=== PATIENT | male | born 2005 | race Caucasian/White ===

== ENCOUNTER 2025-01-14 20:30 | Emergency (ER) | payer BC ==
[~2025-01-14] VITALS: Ht 193 cm; Wt 97.7 kg
--- NOTE | 2025-01-14 20:38 | ELECTROCARDIOGRAPH REPORT ---
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
--- NOTE | 2025-01-14 20:53 | RADIOLOGY REPORT ---
CHEST RADIOGRAPH Indication: CP Technique: Single frontal view of the chest was obtained Comparison: None FINDINGS: Lines and Tubes: None Lungs: No focal consolidation. Pleura: No effusion. No pneumothorax. Cardiomediastinal contours: Unremarkable Bones: No acute osseous abnormality. IMPRESSION: No acute cardiopulmonary disease.
[2025-01-14 20:55] LABS: MEAN PLATELET VOLUME 8.4 FL (7.4-10.4); RED CELL DISTRIBUTION WIDTH 12.6 % (11.5-14.5)
[2025-01-14 21:19] LABS: CREATININE 1.38 MG/DL (0.60-1.10); PRO BRAIN NATRIURETIC PEPTIDE 76 PG/ML (0-125); TOTAL CARBON DIOXIDE 31.1 MMOL/L (24-32); eCRCL 105 ML/MIN; eGFR 66 ML/MIN
--- NOTE | 2025-01-14 23:04 | Physician Documentation ---
History of Present Illness ~ Chief Complaint: Chest Pain Stated Complaint: CHEST PAIN X1 DAY Time Seen by MD: 22:57 HPI This is a 19-year-old male who presents with left-sided sharp and nonradiating chest pain worse with deep breathing, patient reports no shortness of breath if if leaned, nausea, vomiting or diaphoresis. Patient reports no the past cardiac conditions. Patient reports no other acute symptoms or concerns. Medication Reconciliation Allergies: Coded Allergies: No Known Allergies (Unverified , 01/14/25) Past Medical History Past Medical History: No Pertinent History Review of Systems ROS Sharp left chest pain as stated above in the HPI, otherwise all systems are reviewed and negative. Physical Exam Vital Signs: Temperature: 97.9, Heart Rate: 95, Respiratory Rate: 16, BP: 149/76, Pulse Oximetry: 98, Weight: 97.730 Oxygen Flow Rate: 0 Physical Exam VITALS: Reviewed and as above. GENERAL: Alert, nontoxic appearing, no apparent distress. RESPIRATORY: No increased work of breathing, no respiratory distress, speaking in full clear sentences, clear lung sounds in all CHEST: Nontender to palpation CV: Regular rate and rhythm no murmur Progress Results/Orders Results/Orders Vital Signs 01/14/25 01/14/25 01/14/25 20:36 22:52 23:14 Temp 97.9 98.6 Pulse 95 68 Resp 16 16 16 B/P (MAP) 149/76 122/77 Pulse Ox 98 99 O2 Flow Rate 0 Laboratory Tests Test 01/14/25 20:35 01/14/25 22:22 White Blood Count 7.3 Red Blood Count 5.14 Hemoglobin 15.5 Hematocrit 44.6 Mean Corpuscular Volume 86.9 Mean Corpuscular Hemoglobin 30.1 Mean Corpuscular Hemoglobin Concent 34.7 Red Cell Distribution Width 12.6 Platelet Count 214 Mean Platelet Volume 8.4 Neutrophils (%) (Auto) 63.2 Lymphocytes (%) (Auto) 25.0 Monocytes (%) (Auto) 7.3 Eosinophils (%) (Auto) 3.7 Basophils (%) (Auto) 0.8 Neutrophils # (Auto) 4.6 Lymphocytes # (Auto) 1.8 Monocytes # (Auto) 0.5 Eosinophils # (Auto) 0.3 Basophils # (Auto) 0.1 CBC Comment Sodium Level 142 Potassium Level 3.9 Chloride Level 105 Carbon Dioxide Level 31.1 Anion Gap 6 L Blood Urea Nitrogen 19 H Creatinine 1.38 H Estimated GFR/1.73 m2 66 BUN/Creatinine Ratio 13.8 Glucose Level 100 Calcium Level 9.2 Troponin I High Sensitivity 7 6 Pro-B-Type Natriuretic Peptide 76 Albumin 4.3 Chemistry Comments Troponin I High Sens Percent Delta 14 Troponin I Hi Sens Absolute Change -1 EKG/XRAY/CT/US/VASC/MRI EKG : Additional Comment EKG at 2034 interpreted by myself as sinus rhythm at a rate of 70, normal axis, no delta wave, nonspecific ST changes Chest X-Ray : Additional Comments CHEST RADIOGRAPH Indication: CP Technique: Single frontal view of the chest was obtained Comparison: None FINDINGS: Lines and Tubes: None Lungs: No focal consolidation. Pleura: No effusion. No pneumothorax. Cardiomediastinal contours: Unremarkable Bones: No acute osseous abnormality. IMPRESSION: No acute cardiopulmonary disease. Electronically Signed by:LUZ MARIA MCKEON DO Date & Time: 01/14/252049 Dictated by: LUZ MARIA MCKEON DO Dictation date and time: 01/14/252039 I have reviewed and agree with the radiology report. I have reviewed and interpreted the imaging as: No focal consolidation or pneumothorax Heart Score: Heart Score Response (Comments) Value History Slightly Suspicious 0 EKG Normal 0 Age <45 0 Risk Factors No known risk factors 0 Troponin Normal limit 0 Total 0 Medical Decision Making Findings This is a 19-year-old male who presented with one day of sharp left-sided nonradiating chest pain worse with deep breathing, it is reassuring patient reported shortness of breath with symptoms. Heart score 0, PERC negative. Patient is otherwise well-appearing with benign physical exam. EKG did not demonstrate evidence of dysrhythmia, ischemia, or infarction and serial troponins were not elevated. Remainder of lab work did not demonstrate significant metabolic or electrolyte abnormality or evidence of infection. Chest x-ray did not demonstrate evidence of intrathoracic abnormality. Patient is hemodynamically stable and appropriate for outpatient follow up. Patient provided return to care precautions and follow up instructions which he verbalized understanding of. Differential Dx:Considerations: Include: angina, aortic dissection, chest wall pain, CHF, esophageal reflux/spasm, gastritis, herpes zoster, myocardial infarction, pericarditis, pleuritis, pancreatitis, pneumonia, pneumothorax, pulmonary embolus Departure Disposition: HOME / SELF CARE / HOMELESS Impression: Primary Impression: Chest pain Qualified Codes: R07.9 - Chest pain, unspecified Discharge Instructions: Nonspecific Chest Pain, Adult Additional Instructions: There was no clear cause of your chest pain, please return if it worsens or if you develop shortness of breath. Please follow up with your primary care provider in the next few days. Please return to the emergency department for any new or worsening concerning symptoms. Stay well hydrated, have a safe fire season. Referrals: NO PRIMARY CARE PROVIDER (PCP) Education Educated: Patient Educated regarding: diagnosis, treatment, prognosis, need for follow up Signature Scribe Signature: No scribe Attestation: The note accurately reflects work and decisions made by me.SUSHMA Padilla 01/15/25 01:21 RADHA HARRISON Jan 14, 2025 23:04
[2025-01-14 23:14] VITALS: BP 122/77; PULSE 68; RESP 16; TEMP 98.6; O2SAT 99
== END 2025-01-14 23:15 | disposition home or self-care (01) ==
LOC: ER 20:31
DX: R07.89 Other chest pain (principal)
CPT/HCPCS: 36415; 71045; 80048; 83880; 84484; 85025; 93005; 99285